=== PATIENT | female | born 1970 | race Caucasian/White ===

== ENCOUNTER 2020-05-19 07:51 | Day surgery (SDC) | payer BC, SELFPAY ==
[~2020-05-19] VITALS: Ht 188 cm; Wt 120.2 kg
[2020-05-19 08:13] VITALS: BP 137/70
[2020-05-19 11:26] VITALS: BP 124/63
== END 2020-05-19 11:55 | disposition home or self-care (01) ==
LOC: GI 07:51 → OR 10:00 → GI 10:30
PROVIDERS: ATTEND Internal Medicine
DX: R19.4 Change in bowel habit (principal); K57.30 Diverticulosis of large intestine without perforation or abscess without bleeding; F17.290 Nicotine dependence, other tobacco product, uncomplicated; Z88.0 Allergy status to penicillin; Z81.8 Family history of other mental and behavioral disorders
CPT/HCPCS: 45378; J1200; J1610; J2175; J2250; J2310; J3010; J3490; U0003-CS